=== PATIENT | female | born 1990 | race Two or more races ===

== ENCOUNTER 2016-07-04 17:30 | Emergency (ER) | payer BC, MEDICAID ==
[~2016-07-04] VITALS: Ht 154.9 cm; Wt 6.9 kg
[2016-07-04 17:41] VITALS: Ht 154.9 cm; Wt 6.9 kg
--- NOTE | 2016-07-04 20:08 | ERD ---
ER Documentation Chief Complaint Date/Time DATE: 07/04/16 TIME: 20:06 Chief Complaint FREQUENCY, URGENCY AND BURNING UPON URINATION X 2 DAYS HPI Patient is a 26-year-old female who presents to the emergency department with concerns of urinary tract infection. Patient reports urinary frequency, urgency and dysuria 2 days. States she is having to urinate every hour. Patient denies any fever, chills, nausea, vomiting or loss of consciousness. Patient states her urine does appear to have some blood in it however she is currently on her menstrual period. ROS All systems reviewed and are negative except as per history of present illness. Medications Home Meds Active Scripts Nitrofurantoin Monohyd Macrocr* (Macrobid*) 100 Mg Capsr, 100 MG PO BID for 5 Days, CAP Prov:SUSI GHOSH PA-C 07/04/16 Reported Medications [None] No Conflict Check 12/17/09 Allergies Allergies: Coded Allergies: No Known Drug Allergies (Verified Allergy, Mild, 12/17/09) PMhx/Soc History of Surgery: No Anesthesia Reaction: No Hx Neurological Disorder: No Hx Respiratory Disorders: Yes (ASTHMA) Hx Cardiac Disorders: No Hx Psychiatric Problems: No Hx Miscellaneous Medical Probl: No Hx Alcohol Use: Yes (OCCASIONALLY) Hx Substance Use: No Hx Tobacco Use: No Smoking Status: Never smoker Physical Exam Vitals Vital Signs Date Time Temp Pulse Resp B/P Pulse Ox O2 Delivery O2 Flow Rate FiO2 07/04/16 21:32 98.2 83 20 134/78 100 Room Air 07/04/16 17:41 98.5 106 18 152/86 99 Physical Exam GENERAL: Well-developed, well-nourished female. Appears in no acute distress. HEAD: Normocephalic, atraumatic. EYES: Pupils are equally reactive bilaterally. EOMs grossly intact. No conjunctival erythema. ENT: Moist mucous membranes. No uvula deviation. No kissing tonsils. NECK: Supple. No meningismus. Normal range of motion of the neck. LUNG: Clear to auscultation bilaterally. No rhonchi, wheezing, rales or coarse breath sounds. HEART: Regular rate and rhythm. No murmurs, rubs or gallops. ABDOMEN: No scars, ecchymosis or rashes noted. Soft, nontender, and nondistended. Positive bowel sounds in all four quadrants. No rebound tenderness , no guarding. (-) McBurney's point tenderness. No CVA tenderness. BACK: No midline tenderness. EXTREMITIES: Equal pulses bilaterally. No peripheral clubbing, cyanosis or edema. No unilateral leg swelling. NEUROLOGIC: Alert and oriented. Moving all four extremities without any difficulty. Normal speech. Steady gait. SKIN: Normal color. Warm and dry. No rashes or lesions. Results 24 hrs Laboratory Tests Test 07/04/16 20:51 Bedside Urine Blood 3+ Bedside Urine Glucose (UA) Negative Bedside Urine Ketones (LAB) 3+ Bedside Urine Leukocyte Esterase (L 1+ Bedside Urine Nitrite (LAB) Negative Bedside Urine Protein (LAB) 2+ Bedside Urine pH (LAB) 5.5 Procedures/MDM MEDICAL DECISION MAKING: This is a 26-year-old female who presents with dysuria, frequency and urgency 2 days. Vital signs were reviewed. Patient was afebrile. Urine dip showed 1+ leukocytes, 3+ blood. Blood likely due to patient's current menses. Urine was negative. Given these findings, the patients presentation is most consistent with urinary tract infection. I have a much lower clinical concern for pyelonephritis, nephrolithiasis, appendicitis, diverticulitis, constipation, ectopic , PID, ovarian torsion, or tubo-ovarian abscess. PRESCRIPTIONS: Macrobid DISCHARGE: At this time, patient is stable for discharge and outpatient management. I have instructed the patient to follow-up with his/her primary care physician in 1-2 days. Patient should repeat UA in 2 weeks to check for resolution of urinary tract infection. If symptoms persist, patient may need to see a specialist for further examinations and testing. I have instructed the patient to promptly return to the ER at any time for any new or worsening symptoms including increased pain, fever, nausea, vomiting, urinary changes or weakness. The patient and/or family expressed understanding of and agreement with this plan. All questions were answered. Home care instructions were provided. Departure Diagnosis: Primary Impression: UTI (urinary tract infection) Urinary tract infection type: site unspecified Hematuria presence: without hematuria Qualified Code: N39.0 - Urinary tract infection without hematuria, site unspecified Condition: Stable Patient Instructions: Understanding Urinary Tract Infections (UTIs) Additional Instructions: Drink plenty of fluids Call your primary care doctor TOMORROW for an appointment during the next 1-2 days.See the doctor sooner or return here if your condition worsens before your appointment time. SUSI GHOSH PA-C Jul 04, 2016 20:08
[2016-07-04 20:48] LABS: URINE BLOOD (Dip) POC 3+ (NEGATIVE)
[2016-07-04] MEDS ORDERED: NITR-58 PO (21:24)
[2016-07-04 21:32] VITALS: BP 134/78; PULSE 83; RESP 20; TEMP 98.2
== END 2016-07-04 21:36 | disposition home or self-care (01) ==
LOC: FTE 17:30
DX: N39.0 Urinary tract infection, site not specified (principal); J45.909 Unspecified asthma, uncomplicated
CPT/HCPCS: 81003; 99283